=== PATIENT | male | born 1975 | race Caucasian/White ===

== ENCOUNTER 2020-08-09 13:56 | Emergency (ER) | payer SELFPAY ==
[~2020-08-09] VITALS: Ht 170.2 cm; Wt 81.6 kg
[2020-08-09 14:06] VITALS: BP 108/75
--- NOTE | 2020-08-09 14:11 | NUR ---
PT TAKEN TO ER BED 3.
--- NOTE | 2020-08-09 14:15 | NUR ---
JESUS ALBERTO GIRL FRIEND [phone]
--- NOTE | 2020-08-09 14:18 | NUR ---
44 Y/O MALE C/O HEMATURIA, LUQ ABDOMINAL PAIN 12/14 DESCRIBES SHARP NON-RADIATING X 1 DAYS AND C/O N/V/D X 2 DAYS. PT STATES HE HAS VOMITED X10 YESTERDAY TODAY ONLY +N. PT DENIES FEVER/CHILLS. DENIES DIETARY CHANGES OR NEW RX. ABDOMEN IS SOFT, ROUND, TENDER TO PALPATION TO LUQ. LAST BM 08/09/20. DENIES PMH NKA
--- NOTE | 2020-08-09 14:27 | NUR ---
Dr. Goodwin at pt bedside for further evaluation.
[2020-08-09] MEDS ORDERED: NACL 0.9% 1,000 ML IV SCH (14:30)
[2020-08-09] MEDS ORDERED: ONDANSETRON 4 MG/2 ML VIAL IVP ONE (14:30)
--- NOTE | 2020-08-09 14:36 | NUR ---
Pt states he is unable to provide UA at this time, urinal left at pt bedside. Will continue to monitor.
--- NOTE | 2020-08-09 14:53 | NUR ---
laborer powerhouse at pt bedside, gave cultures to Darling arredondo.
--- NOTE | 2020-08-09 14:57 | NUR ---
EMT at pt bedside for EKG.
--- NOTE | 2020-08-09 15:02 | NUR ---
Collected MARIO RICE and MARIO CASTILLO, walked to lab.
[2020-08-09 15:04] LABS: BASOPHILS # (AUTO) 0.1 K/uL (0.00-0.22); BASOPHILS % (AUTO) 0.7 % (0.0-2.0); EOSINOPHILS # (AUTO) 0.2 K/uL (0-0.4); EOSINOPHILS % (AUTO) 2.1 % (0.0-4.0); HEMATOCRIT 49.2 % (36-52); HEMOGLOBIN 16.6 g/dL (12.0-18.0); LYMPHOCYTES # (AUTO) 1.9 K/uL (2.0-11.5); MEAN CORPUSCULAR HEMOGLOBIN 31 pg (27-31); MEAN CORPUSCULAR HGB CONC 34 g/dL (33-37); MEAN CORPUSCULAR VOLUME 91.1 fL (80-94); MONOCYTES # (AUTO) 0.7 K/uL (0.8-1.0); NEUTROPHILS # (AUTO) 4.9 K/uL (1.8-7.7); NEUTROPHILS % (AUTO) 63.2 % (42.2-75.2); PLATELET COUNT (AUTO) 359 K/uL (140-450); RED CELL DISTRIBUTION WIDTH 13.8 % (11.6-13.7); WHITE BLOOD COUNT (AUTO) 7.7 K/uL (4.8-10.8)
--- NOTE | 2020-08-09 15:06 | NUR ---
mortuary technician at pt bedside.
[2020-08-09 15:23] LABS: ALBUMIN 4.1 g/dL (3.4-5.0); ANION GAP 10.2 (8-16); CARBON DIOXIDE 29.8 mmol/L (21-32); CREATININE 1.3 mg/dL (0.6-1.3); TOTAL BILIRUBIN 0.3 mg/dL (0.0-1.0)
--- NOTE | 2020-08-09 16:58 | NUR ---
PT LEFT FACILITY WITHOUT DISCHARGE INSTRUCTIONS. SAID AWARE PATIENT NO LONGER HERE.
--- NOTE | 2020-08-09 16:58 | NUR ---
UPON DOING PATIENT ROUNDS PT WAS NOT FOUND IN THE ROOM. THE GOWN IS ON THE BED. CHECKED ALL RESTROOMS AND LOBBY AND PT IS NO WHERE TO BE FOUND. TYRONE MADE AWARE.
== END 2020-08-09 16:58 | disposition home or self-care (01) ==
LOC: MED 13:56
DX: R11.2 Nausea with vomiting, unspecified (principal); R10.9 Unspecified abdominal pain; R19.7 Diarrhea, unspecified; Z90.49 Acquired absence of other specified parts of digestive tract; Z20.822 Contact with and (suspected) exposure to COVID-19
CPT/HCPCS: 36415; 71045; 80053; 83605; 83690; 84484; 85025; 87040; 87426; 93005; 96361; 96374; 99285; J2405; J7030; U0003